=== PATIENT | male | born 1985 | race Caucasian/White ===

== ENCOUNTER 2017-07-18 14:52 | Emergency (ER) | payer OTHER ==
[2017-07-18 15:07] VITALS: BP 130/65; PULSE 76; TEMP 98.8; BMI 19.5
--- NOTE | 2017-07-18 16:47 | PDOC ---
History of Present Illness - General Chief Complaint: Pain Stated Complaint: PAIN Time Seen by Provider: 07/18/17 16:28 History Source: Patient - History of Present Illness Initial Comments: 07/18/17 16:42 Social 32-year-old male without significant past medical history was presents to the emergency department with worsening bilateral knee pain over the past 4 days. Patient states she has had this knee pain for approximately one month. Patient states he traveled to [facility] and when he arrived there he had fine purple rash noted to extremities. After multiple evaluations by a base engineer and emergency physicians and [facility] he was told that he has vasculitis. He decided to forego continued evaluation and [facility] and returned home for continued treatment. Patient does primary doctor on Wednesday who began the workup for vasculitis treatment. Patient states his primary doctor did not give him any pain medication for his bilateral knee pain. Past History - Past Medical History Allergies/Adverse Reactions: Allergies Allergy/AdvReac Type Severity Reaction Status Date / Time No Known Allergies Allergy Verified 07/18/17 14:59 Home Medications: Ambulatory Orders NK [No Known Home Medication] 07/18/17 COPD: No Other medical history: DENIES. - Suicide/Smoking/Psychosocial Hx Smoking History: Never smoked Review of Systems - Review of Systems Able to Perform ROS?: Yes Is the patient limited Palau[place] proficient: No Constitutional: No: Symptoms Reported HEENTM: No: Symptoms Reported Respiratory: No: Symptoms reported Cardiac (ROS): No: Symptoms Reported ABD/GI: No: Symptoms Reported : No: Symptoms Reported Musculoskeletal: Yes: See HPI Integumentary: No: Symptoms Reported Neurological: No: Symptoms reported *Physical Exam - Vital Signs Last Vital Signs Temp Pulse Resp BP Pulse Ox 98.8 F 76 19 130/65 99 07/18/17 14:59 07/18/17 14:59 07/18/17 14:59 07/18/17 14:59 07/18/17 14:59 - Physical Exam General Appearance: Yes: Appropriately Dressed. No: Apparent Distress HEENT: positive: Normal ENT Inspection Neck: positive: Trachea midline, Supple Respiratory/Chest: positive: Lungs Clear, Normal Breath Sounds. negative: Respiratory Distress, Accessory Muscle Use Cardiovascular: positive: Regular Rhythm, Regular Rate. negative: Murmur Gastrointestinal/Abdominal: positive: Normal Bowel Sounds, Soft. negative: Tender Musculoskeletal: positive: Normal Inspection. negative: CVA Tenderness Extremity: positive: Normal Inspection, Normal Range of Motion. negative: Tender, Swelling, Erythema, Inflammation Integumentary: positive: Normal Color, Dry, Warm Neurologic: positive: Fully Oriented, Alert, Normal Response, Motor Strength 5/5 Medical Decision Making - Medical Decision Making 07/18/17 16:47 A/P: 32-year-old male without past medical history was in the process of receiving a vasculitis workup presents with worsening bilateral knee pain over 3 days. Able to flex and extend bilateral knees against resistance. No erythema, inflammation, edema, deformity present in knees. No rash present. 30 mg Toradol IM now Discharge home *DC/Admit/Observation/Transfer Diagnosis at time of Disposition: Knee pain, bilateral Qualifiers: Chronicity: acute Qualified Code(s): M25.561 - Pain in right knee; M25.562 - Pain in left knee; M25.562 - Pain in left knee - Discharge Dispostion Disposition: HOME Condition at time of disposition: Stable Admit: No - Referrals Referrals: Elisabet Gregorio MD [Primary Care Provider] - - Patient Instructions Additional Instructions: Take Motrin as directed by manufacturers instructions as needed for pain. Continue evaluation with Dr. gregorio for definitive diagnosis and appropriate treatment. For worsening pain call Dr. gregorio for evaluation. Return to emergency department for rash, worsening pain, fevers, severe abdominal pain, or any other concerns. Thank you very much for choosing us to provide your emergent healthcare needs. - Post Discharge Activity
[2017-07-18] MEDS ORDERED: KETOROLAC TROMETHAMINE 30 MG/1 ML VIAL IM ONE (16:52)
[2017-07-18] MEDS ORDERED: KETOROLAC TROMETHAMINE 30 MG/1 ML VIAL ONE (16:53)
== END 2017-07-18 17:08 | disposition home or self-care (01) ==
LOC: JERFT 14:52
PROC: 3E0233Z Introduction of Anti-inflammatory into Muscle, Percutaneous Approach (ICD-10-PCS; principal; 2017-07-18)
DX: I77.6 Arteritis, unspecified (principal)
CPT/HCPCS: 96372; 99281-25

== ENCOUNTER 2017-12-10 13:53 | Emergency (ER) | payer OTHER ==
[2017-12-10 14:15] VITALS: BP 122/68; PULSE 63; TEMP 99; BMI 19.8
--- NOTE | 2017-12-10 14:15 | PDOC ---
Rapid Medical Evaluation Medical Evaluation: Allergies Allergy/AdvReac Type Severity Reaction Status Date / Time No Known Allergies Allergy Verified 07/18/17 14:59 12/10/17 14:02 I have performed a brief in-person evaluation of this patient. The patient presents with a chief complaint of:Sore throat x 3 days. Seen by dentist this am who told pt "my tonsils are swollen" and referred to ED. H/o strep C/B hyperallergic vasculitis Pertinent physical exam findings:vss w/ clear oropharynx and possible submandibular lymphadenopathy b/l I have ordered the following:rapid strep The patient will proceed to the ED for further evaluation. Discharge Disposition - Diagnosis Sore throat - Referrals - Patient Instructions - Post Discharge Activity
--- NOTE | 2017-12-10 14:24 | PDOC ---
History of Present Illness - General Chief Complaint: Sore Throat Stated Complaint: SORE THROAT - History of Present Illness Initial Comments: 12/10/17 14:24 32-year-old male presents for evaluation after being seen by his dentist and told he's has swollen tonsils with past medical history of vasculitis Past History - Past Medical History Allergies/Adverse Reactions: Allergies Allergy/AdvReac Type Severity Reaction Status Date / Time No Known Allergies Allergy Verified 12/10/17 14:09 Home Medications: Ambulatory Orders NK [No Known Home Medication] 07/18/17 COPD: No Other medical history: VASCULITIS. - Suicide/Smoking/Psychosocial Hx Smoking History: Never smoked Review of Systems - Review of Systems All Other Systems: Reviewed and Negative *Physical Exam - Vital Signs Last Vital Signs Temp Pulse Resp BP Pulse Ox 99 F 63 19 122/68 99 12/10/17 14:09 12/10/17 14:09 12/10/17 14:09 12/10/17 14:09 12/10/17 14:09 - Physical Exam Comments: GENERAL: The patient is awake, alert, and fully oriented, in no acute distress. HEAD: Normal with no signs of trauma. EYES: extraocular movements intact, sclera anicteric, conjunctiva clear. ENT: Ears normal, nares patent, oropharynx clear without exudates. Moist mucous membranes. NECK: Normal range of motion, supple without lymphadenopathy, JVD, or masses. LUNGS: Breath sounds equal, clear to auscultation bilaterally. No wheezes, and no crackles. HEART: Regular rate and rhythm, normal S1 and S2 without murmur, rub or gallop. ABDOMEN: Soft, nontender, normoactive bowel sounds. No guarding, no rebound. No masses. EXTREMITIES: Normal range of motion, no edema. No clubbing or cyanosis. No cords, erythema, or tenderness. NEUROLOGICAL: Cranial nerves II through XII grossly intact. Normal speech, normal gait. PSYCH: Normal mood, normal affect. SKIN: Warm, Dry, normal turgor, no rashes or lesions noted. 12/10/17 14:25 Medical Decision Making - Medical Decision Making 32-year-old male asymptomatic told to have a strep test by his dentist because he has swollen tonsils. My examination is benign. None of the above no erythema injection or exudates 12/10/17 14:25 *DC/Admit/Observation/Transfer Diagnosis at time of Disposition: Normal exam Diagnosis at time of Disposition: (Ruled Out): Sore throat - Discharge Dispostion Disposition: HOME Condition at time of disposition: Stable Decision to Admit order: No - Referrals - Patient Instructions Additional Instructions: Examination of your throat today was normal. You're strep test was negative. Return to the ER should you exhibit any symptoms. Otherwise follow-up with her primary care physician further evaluation and treatment options. - Post Discharge Activity
== END 2017-12-10 15:56 | disposition home or self-care (01) ==
LOC: JERFT 13:53
DX: Z03.89 Encounter for observation for other suspected diseases and conditions ruled out (principal)
CPT/HCPCS: 87070; 87430; 99281-25